=== PATIENT | male | born 1995 | race Caucasian/White ===

== ENCOUNTER 2017-02-09 00:31 | Emergency (ER) | payer MEDICAID ==
[2017-02-09 02:05] LABS: CALCIUM 8.4 mg/dL (8.5-10.1); CARBON DIOXIDE 27.1 mmol/L (21-32); CHLORIDE SERUM 103 mmol/L (98-107); CREATININE SERUM 1.1 mg/dL (0.7-1.3); GFR1 > 60 mL/min; GLUCOSE SERUM 111 mg/dL (74-106); POTASSIUM SERUM 3.7 mmol/L (3.5-5.1); SODIUM SERUM 137 mmol/L (136-145)
[2017-02-09 02:10] LABS: ALBUMIN 3.7 g/dL (3.4-5.0); ALKALINE PHOSPHATASE 99 U/L (46-116); ALT/SGPT 36 U/L (16-63); AST/SGOT 25 U/L (15-37); BILIRUBIN TOTAL 0.49 mg/dL (0.20-1.00); TOTAL PROTEIN, SERUM 7.9 g/dL (6.4-8.2)
[2017-02-09 03:00] VITALS: BP 131/77
== END 2017-02-09 03:00 | disposition home or self-care (01) ==
LOC: ED 00:31
PROVIDERS: Emergency Medicine
DX: R19.7 Diarrhea, unspecified (principal); R10.84 Generalized abdominal pain; R11.0 Nausea
CPT/HCPCS: Q0162

== ENCOUNTER 2020-01-13 08:01 | Emergency (ER) | payer BC ==
[~2020-01-13] VITALS: Ht 190.5 cm; Wt 128.4 kg
[2020-01-13 08:05] VITALS: Ht 190.5 cm; Wt 128.4 kg
[2020-01-13 09:56] VITALS: BP 131/76
== END 2020-01-13 09:56 | disposition home or self-care (01) ==
LOC: ED 08:01
DX: S90.31XA Contusion of right foot, initial encounter (principal); W20.8XXA Other cause of strike by thrown, projected or falling object, initial encounter; Y93.89 Activity, other specified; Y92.89 Other specified places as the place of occurrence of the external cause; Y99.8 Other external cause status
CPT/HCPCS: J1885; Q0092